=== PATIENT | male | born 1965 | race Hispanic/Latino ===

== ENCOUNTER 2023-04-27 19:08 | Emergency (ER) | payer SELFPAY ==
[~2023-04-27] VITALS: Ht 154.9 cm; Wt 90.0 kg
[2023-04-27] MEDS ORDERED: GENTAMICIN0.3 % OS (20:14)
[2023-04-27 20:35] VITALS: BP 141/90
== END 2023-04-27 20:37 | disposition home or self-care (01) | DRG 115 ==
LOC: ED 19:08
PROC: 08C9XZZ Extirpation of Matter from Left Cornea, External Approach (ICD-10-PCS; principal; 2023-04-27)
DX: T15.02XA Foreign body in cornea, left eye, initial encounter (principal); I10 Essential (primary) hypertension; X58.XXXA Exposure to other specified factors, initial encounter; Y93.89 Activity, other specified